=== PATIENT | male | born 1990 | race African-American/Black ===

== ENCOUNTER 2024-11-07 21:47 | Emergency (ER) | payer SELFPAY ==
[~2024-11-07] VITALS: Ht 177.8 cm; Wt 87.0 kg
[2024-11-07 21:49] VITALS: O2SAT 98
[2024-11-07 22:57] LABS: HEMATOCRIT. 45.5 % (42.0-52.0); HEMOGLOBIN. 15.2 g/dL (14.0-18.0); MEAN CORPUSCULAR HEMOGLOBIN 30.2 pg (28.0-32.0); MEAN CORPUSCULAR HGB CONC 33.3 g/dL (31.0-37.0); MEAN CORPUSCULAR VOLUME 90.7 fL (80.0-94.0); MEAN PLATELET VOLUME 8.1 fl (7.4-10.4); PLATELET 419 x1000/uL (130-400); RED BLOOD CELL COUNT 5.02 mill/uL (4.7-6.1); WHITE BLOOD COUNT 5.5 x1000/uL (4.5-11.0)
[2024-11-07 22:58] LABS: CHLORIDE 101 mEq/L (98-107); POTASSIUM 3.8 mEq/L (3.5-5.1); SODIUM 146 mEq/L (136-145)
[2024-11-07 22:59] LABS: CALCIUM 9.8 mg/dL (8.7-10.4); CARBON DIOXIDE 30 mEq/L (21-32)
[2024-11-07 23:04] LABS: CREATININE 0.9 mg/dL (0.6-1.3); GLUCOSE 90 mg/dL (70-105); UREA NITROGEN BLOOD 8 mg/dL (9-23)
[2024-11-07 23:20] LABS: ETHANOL BLOOD 429 mg/dL (<10)
[2024-11-07] MEDS: DIPHENHYDRAMINE 50MG/ML VIAL IM ONE (23:29)
[2024-11-07 23:42] LABS: DIFFERENTIAL COMMENT 1
[2024-11-08] MEDS: SODIUM CHLORIDE 0.9% 1,000 ML IV ONE (00:40)
[2024-11-08 02:50] LABS: ATYPICAL LYMPHOCYTES 3
[2024-11-08 02:51] LABS: PLATELET ESTIMATE SLIGHTLY INCREASED
[2024-11-08] MEDS: LORAZEPAM 2MG/ML INJ IV NR (03:14)
[2024-11-08] MEDS ORDERED: MAGNESIUM/ALUMINUM HYDROXIDE/SIMETHICONE 30ML UDC PO PRN (04:15)
[2024-11-08] MEDS ORDERED: LORAZEPAM 0.5MG TABLET PO PRN (04:15)
[2024-11-08] MEDS ORDERED: CLONIDINE 0.1MG TABLET PO PRN (04:15)
[2024-11-08] MEDS ORDERED: ONDANSETRON HCL 4MG/2ML INJ IV PRN (04:15)
[2024-11-08] MEDS ORDERED: DEXT 5%/0.45% NACL 1000ML 1,000 ML IV SCH (04:15)
[2024-11-08] MEDS ORDERED: GUAIFENESIN 200MG/10ML SUGAR FREE UDC PO PRN (04:15)
[2024-11-08] MEDS ORDERED: ACETAMINOPHEN 325MG TABLET PO PRN ×2 (04:15)
[2024-11-08] MEDS ORDERED: IPRATROPIUM/ALBUTEROL 0.5-3(2.5)MG/3ML NEB HHN PRN (04:15)
[2024-11-08] MEDS ORDERED: DOCUSATE SODIUM 100MG CAPSULE PO PRN (04:15)
[2024-11-08 04:25] VITALS: BP 133/70; PULSE 75; RESP 18; TEMP 36.7; O2SAT 98
[2024-11-08] MEDS ORDERED: MVI, ADULT NO.1 10 ML, FOLIC ACID 1 MG, THIAMINE HCL 100 MG in SODIUM CHLORIDE 0.9% 1,0... IV SCH (05:00)
== END 2024-11-08 04:24 | disposition left against medical advice (07) ==
LOC: ER 21:47
DX: T51.0X1A Toxic effect of ethanol, accidental (unintentional), initial encounter (principal); G92.8 Other toxic encephalopathy; Y90.8 Blood alcohol level of 240 mg/100 ml or more; F41.9 Anxiety disorder, unspecified; Y92.89 Other specified places as the place of occurrence of the external cause
CPT/HCPCS: 80048; 80320; 85025; 36415; 71045; 70450; 96372; 99285; 96374; J1200; J2060; A4606; J3411; J3490; J7030; G0480